=== PATIENT | male | born 1995 | race Caucasian/White ===

== ENCOUNTER 2017-12-18 16:45 | Inpatient (IN) | payer MEDICAID ==
[2017-12-18] MEDS ORDERED: DiphenhydrAMINE HCL 50 MG/ML VIAL ONE ×2 (17:26→17:28)
[2017-12-18] MEDS ORDERED: HALOPERIDOL LACTATE 5 MG/ML VIAL ONE (17:26)
[2017-12-18] MEDS ORDERED: LORazepam 2 MG/ML VIAL ONE ×2 (17:26→17:28)
[2017-12-18] MEDS ORDERED: HALOPERIDOL LACTATE 5 MG/ML VIAL IM ONE (17:30)
[2017-12-18] MEDS ORDERED: LORazepam 2 MG/ML VIAL IM ONE (17:30)
[2017-12-18] MEDS ORDERED: DiphenhydrAMINE HCL 50 MG/ML VIAL IM ONE (17:30)
[2017-12-18] MEDS ORDERED: INFLUENZA VIRUS VACCINE QVS 2017-18 (3YR+)/PF 60 MCG/0.5 ML SYRINGE IM ONE (18:15)
[2017-12-19 08:09] LABS: BASOPHILS % (AUTO) 0.5 % (0.0-2.0); EOSINOPHILS % (AUTO) 0.6 % (1.0-6.0); HEMATOCRIT 51.5 % (41-53); HEMOGLOBIN 18.2 g/dL (13.5-17.5); LYMPHOCYTES # (AUTO) 1.9 K/uL (1.0-4.8); LYMPHOCYTES % (AUTO) 21.5 % (22.0-44.0); MEAN CORPUSCULAR HEMOGLOBIN 34.3 pg (26.0-34.0); MEAN CORPUSCULAR HGB CONC 35.3 G/dL (31.0-37.0); MEAN CORPUSCULAR VOLUME 97 fL (80-100); MONOCYTES # (AUTO) 0.7 K/uL (0.1-1.0); MONOCYTES % (AUTO) 7.7 % (2.0-9.0); NEUTROPHILS # (AUTO) 6.2 K/uL (1.8-7.7); NEUTROPHILS % (AUTO) 69.7 % (40.0-70.0); PLATELET COUNT (AUTO) 346 K/uL (150-450)
[2017-12-19 08:39] LABS: ALANINE AMINOTRANSFERASE 20 U/L (12-78); ALBUMIN 4.6 g/dL (3.4-5.0); ALKALINE PHOSPHATASE 82 U/L (46-116); ANION GAP 7 mmol/L (8-16); ASPARTATE AMINOTRANSFERASE 39 U/L (15-37); BILIRUBIN,TOTAL 1.1 mg/dL (0.1-1.0); CALCIUM, TOTAL 9.9 mg/dL (8.8-10.5); CARBON DIOXIDE 33 mmol/L (22-29); CHLORIDE 101 mmol/L (98-107); CHOL/HDL RATIO 2.6 (4.2-7.3); CHOLESTEROL 161 mg/dL (131-200); CREATININE 1.11 mg/dL (0.60-1.30); FREE T4 (FREE THYROXINE) 0.96 ng/dL (0.76-1.46); GLOMERULAR FILTR. RATE CALC > 60 mL/min (>60); GLUCOSE,RANDOM 98 mg/dL (70-110); HDL CHOLESTEROL 62 mg/dL (40-60); LDL CHOL (CALC.) 91 mg/dL (0-130); POTASSIUM 4.4 mmol/L (3.5-5.1); SODIUM SERUM 141 mmol/L (136-145); THYROID STIMULATING HORMONE 1.88 uIU/mL (0.36-3.74); TOTAL PROTEIN, SERUM 8.1 g/dL (6.4-8.2); TRIGLYCERIDES 39 mg/dL (15-150); UREA NITROGEN, BLOOD 15 mg/dL (7-18)
[2017-12-19] MEDS ORDERED: BENZOCAINE/MENTHOL LOZENGE MM PRN (11:00)
[2017-12-19] MEDS ORDERED: CloNIDine HCL 0.1 MG TABLET PO PRN (11:00)
[2017-12-19] MEDS ORDERED: LOPERAMIDE HCL 2 MG CAPSULE PO PRN (11:00)
[2017-12-19] MEDS ORDERED: ALBUTEROL SULFATE HFA 90 MCG/PUFF 8 GM INHALER IH PRN (11:00)
[2017-12-19] MEDS ORDERED: ONDANSETRON HCL 4 MG TABLET PO PRN (11:00)
[2017-12-19] MEDS ORDERED: ACETAMINOPHEN 325 MG TABLET PO PRN (11:00)
[2017-12-19] MEDS ORDERED: MAGNESIUM HYDROXIDE SUSPENSION 30 ML UDCUP PO PRN (11:00)
[2017-12-19] MEDS ORDERED: IBUPROFEN 600 MG TABLET PO PRN (11:00)
[2017-12-19] MEDS ORDERED: PETROLATUM,WHITE 71 GM JELLY TP PRN (11:00)
[2017-12-19] MEDS ORDERED: MAG HYDROX/AL HYDROX/SIMETH ES 30 ML SUSPENSION UDCUP PO PRN (11:00)
[2017-12-19] MEDS ORDERED: BACITRACIN 28.4 GM OINTMENT TP PRN (11:00)
[2017-12-19 16:00] VITALS: BP 121/77
[2017-12-19] MEDS: HALOPERIDOL 5 MG TABLET PO PRN (16:50)
[2017-12-19] MEDS: LORazepam 2 MG TABLET PO PRN (16:50)
[2017-12-19] MEDS: ZOLPIDEM TARTRATE 10 MG TABLET PO PRN (21:18)
[2017-12-19] MEDS: RisperiDONE 1 MG TABLET PO SCH (21:18)
[2017-12-20 06:53] VITALS: BP 118/66
[2017-12-20 08:33] LABS: APPEARANCE,URINE TURBID (CLEAR); BILIRUBIN,URINE NEGATIVE (NEGATIVE); GLUCOSE, URINE (UA) NEGATIVE (NEGATIVE); KETONES,URINE NEGATIVE (NEGATIVE); LEUKOCYTE ESTERASE ,URINE NEGATIVE (NEGATIVE); NITRATE,URINE NEGATIVE (NEGATIVE); OCCULT BLOOD,URINE NEGATIVE (NEGATIVE); PH,URINE 5.5 (5.0-8.0); PROTEIN,URINE NEGATIVE (NEGATIVE); UROBILINOGEN,URINE 0.2 mg/dL (<=1.0)
[2017-12-20 08:44] LABS: RBC,URINE None Seen /HPF (0-2)
[2017-12-20 08:45] LABS: BACTERIA,URINE Few /HPF (None Seen); SQUAMOUS EPITHELIAL CELL,UR Rare /LPF (None Seen); WBC,URINE None Seen /HPF (0-5)
[2017-12-20 08:46] LABS: AMORPHOUS SEDIMENT,UR Many /LPF (None Seen); CALCIUM OXALATE CRYSTALS,UR Few /LPF (None Seen)
[2017-12-20 09:11] VITALS: BP 112/89
[2017-12-20 10:28] LABS: AMPHET/METH SCREEN,URINE POSITIVE (NEGATIVE); BARBITURATE SCREEN, URINE NEGATIVE (NEGATIVE); BENZODIAZEPINES SCREEN,URINE NEGATIVE (NEGATIVE); CANNABINOID SCREEN,URINE POSITIVE (NEGATIVE); COCAINE SCREEN,URINE NEGATIVE (NEGATIVE); METHADONE SCREEN, URINE NEGATIVE (NEGATIVE); OPIATE SCREEN,URINE NEGATIVE (NEGATIVE)
[2017-12-20 10:45] LABS: PHENCYCLIDINE SCREEN,URINE NEGATIVE (NEGATIVE)
[2017-12-20] MEDS: LORazepam 2 MG TABLET PO PRN (16:23)
[2017-12-20] MEDS: HALOPERIDOL 5 MG TABLET PO PRN (16:23)
[2017-12-20 16:36] VITALS: BP 112/65
[2017-12-20] MEDS: RisperiDONE 1 MG TABLET PO SCH (21:07)
[2017-12-21 00:17] VITALS: BP 114/70
[2017-12-21] MEDS: ZOLPIDEM TARTRATE 10 MG TABLET PO PRN (00:22)
[2017-12-21 08:16] VITALS: BP 122/68
[2017-12-21] MEDS ORDERED: RISP1 PO (12:10)
== END 2017-12-21 13:15 | disposition home or self-care (01) | DRG 750 ==
LOC: B3A 17:32
DX: F20.0 Paranoid schizophrenia (principal); R45.850 Homicidal ideations; R45.851 Suicidal ideations; G47.00 Insomnia, unspecified; Z59.0 Homelessness; Z79.899 Other long term (current) drug therapy; Z91.19 Patient's noncompliance with other medical treatment and regimen
CPT/HCPCS: 80307; 83036; 84439; 84443; J1200; J1630; J2060

== ENCOUNTER 2021-09-10 20:36 | Inpatient (IN) | payer MEDICAID ==
[~2021-09-10 20:36] MED LIST: RISP1TAB48 PO
[2021-09-11 00:01] LABS: GLUCOMETER DEV NAME(LOC) POC.BV
[2021-09-11] MEDS ORDERED: HALOPERIDOL 5 MG TABLET PO PRN (00:15)
[2021-09-11 01:21] VITALS: BP 130/69
[2021-09-11] MEDS ORDERED: INFLUENZA VIRUS VACCINE QVS 2021-22 (6MO+)/PF 60 MCG/0.5 ML SYRINGE IM. ONE (01:45)
[2021-09-11 08:15] VITALS: BP 137/82
[2021-09-11] MEDS ORDERED: ONDANSETRON HCL 4 MG TABLET PO PRN (10:30)
[2021-09-11] MEDS ORDERED: DOCUSATE SODIUM 100 MG CAPSULE PO PRN (10:30)
[2021-09-11] MEDS ORDERED: IBUPROFEN 400 MG TABLET PO PRN (10:30)
[2021-09-11] MEDS ORDERED: MAG HYDROX/AL HYDROX/SIMETH ES 30 ML SUSPENSION UDCUP PO PRN (10:30)
[2021-09-11] MEDS ORDERED: MAGNESIUM HYDROXIDE SUSPENSION 30 ML UDCUP PO PRN (10:30)
[2021-09-11] MEDS ORDERED: ACETAMINOPHEN 325 MG TABLET PO PRN (10:30)
[2021-09-11] MEDS ORDERED: ALBUTEROL SULFATE HFA 90 MCG/PUFF 8 GM INHALER IH PRN (10:30)
[2021-09-11] MEDS ORDERED: CloNIDine HCL 0.1 MG TABLET PO PRN (10:30)
[2021-09-11] MEDS ORDERED: PETROLATUM,WHITE 28 GM JELLY TP PRN (10:30)
[2021-09-11] MEDS ORDERED: LOPERAMIDE HCL 2 MG CAPSULE PO PRN (10:30)
[2021-09-11] MEDS ORDERED: GuaiFENesin/D-METHORPHAN [SUGAR-FREE] 200-20MG/10 ML SYRUP UDCUP PO PRN (10:30)
[2021-09-11] MEDS ORDERED: NICOTINE 14 MG/24 HOUR PATCH TD PRN (10:30)
[2021-09-11] MEDS: NICOTINE 21 MG/24 HOUR PATCH TD PRN (12:49)
[2021-09-11 16:19] VITALS: BP 127/67
[2021-09-11] MEDS: LORazepam 2 MG TABLET PO PRN (16:19)
[2021-09-11] MEDS: RisperiDONE 1 MG TABLET PO SCH (16:19)
[2021-09-11] MEDS: ZOLPIDEM TARTRATE 10 MG TABLET PO PRN (20:40)
[2021-09-12 04:00] VITALS: BP 129/83
[2021-09-12 08:18] LABS: BASOPHILS % (AUTO) 0.8 % (0.0-2.0); EOSINOPHILS % (AUTO) 0.9 % (1.0-6.0); HEMATOCRIT 47.7 % (41-53); HEMOGLOBIN 16.4 g/dL (13.5-17.5); LYMPHOCYTES # (AUTO) 2.2 K/uL (1.0-4.8); LYMPHOCYTES % (AUTO) 37.1 % (22.0-44.0); MEAN CORPUSCULAR HEMOGLOBIN 33.9 pg (26.0-34.0); MEAN CORPUSCULAR HGB CONC 34.3 G/dL (31.0-37.0); MEAN CORPUSCULAR VOLUME 99 fL (80-100); MONOCYTES # (AUTO) 0.5 K/uL (0.1-1.0); MONOCYTES % (AUTO) 8.8 % (2.0-9.0); NEUTROPHILS # (AUTO) 3.1 K/uL (1.8-7.7); NEUTROPHILS % (AUTO) 52.4 % (40.0-70.0); PLATELET COUNT (AUTO) 247 K/uL (150-450); RED BLOOD CELL COUNT(AUTO) 4.83 MIL/uL (4.50-5.90); RED CELL DISTRIBUTION WIDTH 13.5 % (11.5-14.5)
[2021-09-12 08:25] LABS: ALANINE AMINOTRANSFERASE 22 U/L (12-78); ALBUMIN 4.1 g/dL (3.4-5.0); ALKALINE PHOSPHATASE 61 U/L (46-116); ANION GAP 1 mmol/L (8-16); ASPARTATE AMINOTRANSFERASE 11 U/L (15-37); BILIRUBIN,TOTAL 0.5 mg/dL (0.1-1.0); CALCIUM, TOTAL 9.2 mg/dL (8.8-10.5); CARBON DIOXIDE 32 mmol/L (22-29); CHLORIDE 106 mmol/L (98-107); CHOL/HDL RATIO 3.1 (4.2-7.3); CHOLESTEROL 159 mg/dL (131-200); CREATININE 0.92 mg/dL (0.60-1.30); FREE T4 (FREE THYROXINE) 0.93 ng/dL (0.76-1.46); GLOMERULAR FILTR. RATE CALC > 60 mL/min (>60); GLUCOSE,RANDOM 96 mg/dL (70-110); HDL CHOLESTEROL 52 mg/dL (40-60); LDL CHOL (CALC.) 98 mg/dL (0-130); POTASSIUM 4.5 mmol/L (3.5-5.1); SODIUM SERUM 139 mmol/L (136-145); THYROID STIMULATING HORMONE 1.06 uIU/mL (0.36-3.74); TOTAL PROTEIN, SERUM 7.3 g/dL (6.4-8.2); TRIGLYCERIDES 44 mg/dL (15-150); UREA NITROGEN, BLOOD 6 mg/dL (7-18)
[2021-09-12 08:53] VITALS: BP 126/82
[2021-09-12] MEDS: RisperiDONE 1 MG TABLET PO SCH (09:00)
[2021-09-12 16:20] VITALS: BP 141/64
[2021-09-12] MEDS: LORazepam 2 MG TABLET PO PRN (16:27)
[2021-09-12] MEDS ORDERED: HALOPERIDOL 5 MG TABLET PO SCH (21:00)
[2021-09-13 05:06] VITALS: BP 113/85
[2021-09-13 08:05] VITALS: BP 126/72
[2021-09-13] MEDS ORDERED: HALOPERIDOL DECANOATE 100 MG/ML VIAL IM ONE (11:00)
[2021-09-13 16:15] VITALS: BP 137/79
[2021-09-13] MEDS: NICOTINE 21 MG/24 HOUR PATCH TD PRN (18:25)
[2021-09-13] MEDS: ZOLPIDEM TARTRATE 10 MG TABLET PO PRN (20:27)
[2021-09-13] MEDS: HALOPERIDOL 5 MG TABLET PO SCH (20:27)
[2021-09-13] MEDS: LORazepam 2 MG TABLET PO PRN (21:46)
[2021-09-14 04:49] VITALS: BP 138/90
[2021-09-14 08:07] VITALS: BP 130/84
[2021-09-14 16:14] VITALS: BP 120/75
[2021-09-14] MEDS ORDERED: HALOPERIDOL DECANOATE 100 MG/ML VIAL IM SCH (17:00)
[2021-09-14] MEDS: HALOPERIDOL 5 MG TABLET PO SCH (20:33)
[2021-09-14] MEDS: ZOLPIDEM TARTRATE 10 MG TABLET PO PRN (20:41)
[2021-09-14] MEDS: LORazepam 2 MG TABLET PO PRN (20:41)
[2021-09-15 04:25] VITALS: BP 120/70
[2021-09-15 09:04] VITALS: BP 124/70
[2021-09-15] MEDS: NICOTINE 21 MG/24 HOUR PATCH TD PRN (12:13)
[2021-09-15 16:13] VITALS: BP 121/79
[2021-09-15] MEDS: HALOPERIDOL 5 MG TABLET PO SCH (20:16)
[2021-09-15] MEDS: LORazepam 2 MG TABLET PO PRN (20:17)
[2021-09-15] MEDS: ZOLPIDEM TARTRATE 10 MG TABLET PO PRN (22:20)
[2021-09-16 01:22] VITALS: BP 101/63
[2021-09-16 08:21] VITALS: BP 126/82
[2021-09-16] MEDS: HALOPERIDOL 5 MG TABLET PO SCH (08:30)
[2021-10-13] MEDS ORDERED: HALOPERIDOL DECANOATE 100 MG/ML VIAL IM SCH (09:00)
== END 2021-09-16 15:00 | disposition left against medical advice (07) | DRG 750 ==
LOC: B3A 23:59 → UNDOADMIN 09-11 00:11 → B3A 09-11 00:17
PROVIDERS: ADMIT Psychiatry & Neurology Psychiatry; ATTEND Psychiatry & Neurology Psychiatry
DX: F20.0 Paranoid schizophrenia (principal); F41.9 Anxiety disorder, unspecified; G44.209 Tension-type headache, unspecified, not intractable; G47.00 Insomnia, unspecified; Z20.822 Contact with and (suspected) exposure to COVID-19
CPT/HCPCS: 80053; 80061; 84436; 84439; 84443; 85025; G0480; J1631

== ENCOUNTER 2021-09-27 02:16 | Emergency (ER) | payer MEDICAID, OTHER ==
[~2021-09-27] VITALS: Ht 180.3 cm; Wt 68.5 kg
[2021-09-27] MEDS ORDERED: LORA-1001 PO (02:35)
[2021-09-27] MEDS ORDERED: ZOLP10TA8 PO (02:35)
[2021-09-27] MEDS ORDERED: HALO5TAB2 PO (02:35)
[2021-09-27 02:54] LABS: BASOPHILS % (AUTO) 0.5 % (0.0-2.0); EOSINOPHILS % (AUTO) 0.9 % (1.0-6.0); HEMATOCRIT 44.3 % (41-53); HEMOGLOBIN 15.4 g/dL (13.5-17.5); LYMPHOCYTES # (AUTO) 3.5 K/uL (1.0-4.8); LYMPHOCYTES % (AUTO) 29.4 % (22.0-44.0); MEAN CORPUSCULAR HEMOGLOBIN 33.7 pg (26.0-34.0); MEAN CORPUSCULAR HGB CONC 34.7 G/dL (31.0-37.0); MEAN CORPUSCULAR VOLUME 97 fL (80-100); MONOCYTES % (AUTO) 8.2 % (2.0-9.0); NEUTROPHILS # (AUTO) 7.2 K/uL (1.8-7.7); PLATELET COUNT (AUTO) 281 K/uL (150-450); RED BLOOD CELL COUNT(AUTO) 4.56 MIL/uL (4.50-5.90); RED CELL DISTRIBUTION WIDTH 13.2 % (11.5-14.5)
[2021-09-27 03:08] LABS: ANION GAP 6 mmol/L (8-16); CALCIUM, TOTAL 9.3 mg/dL (8.8-10.5); CARBON DIOXIDE 31 mmol/L (22-29); CHLORIDE 106 mmol/L (98-107); CREATININE 1.06 mg/dL (0.60-1.30); GLOMERULAR FILTR. RATE CALC > 60 mL/min (>60); GLUCOSE,RANDOM 182 mg/dL (70-110); POTASSIUM 3.7 mmol/L (3.5-5.1); SODIUM SERUM 143 mmol/L (136-145); UREA NITROGEN, BLOOD 13 mg/dL (7-18)
[2021-09-27 03:15] LABS: ALANINE AMINOTRANSFERASE 39 U/L (12-78); ALBUMIN 3.9 g/dL (3.4-5.0); ALKALINE PHOSPHATASE 63 U/L (46-116); ASPARTATE AMINOTRANSFERASE 43 U/L (15-37); BILIRUBIN,TOTAL 0.3 mg/dL (0.1-1.0); TOTAL PROTEIN, SERUM 6.8 g/dL (6.4-8.2)
[2021-09-27] MEDS ORDERED: NALOXONE HCL 1 MG/ML 2 ML SYG ONE (03:48)
[2021-09-27] MEDS ORDERED: NALOXONE HCL 1 MG/ML 2 ML SYG IVP ONE (04:00)
[2021-09-27 05:50] VITALS: BP 146/75
== END 2021-09-27 06:23 | disposition home or self-care (01) ==
LOC: EMS 02:24
DX: T40.601A Poisoning by unspecified narcotics, accidental (unintentional), initial encounter (principal); Y92.89 Other specified places as the place of occurrence of the external cause
CPT/HCPCS: 36415; 71045; 80053; 85025; 96374; 99285; G0480; J2310

== ENCOUNTER 2021-09-27 08:24 | Emergency (ER) | payer OTHER ==
[~2021-09-27] VITALS: Ht 175.3 cm; Wt 86.4 kg
[~2021-09-27 08:24] MED LIST changes: +HALO5TAB2 PO; +LORA-1001 PO; -RISP1TAB48 PO; +ZOLP10TA8 PO
[2021-09-27 12:36] VITALS: BP 137/71
== END 2021-09-27 12:37 | disposition home or self-care (01) ==
LOC: EMS 10:01
DX: T40.601A Poisoning by unspecified narcotics, accidental (unintentional), initial encounter (principal); Y92.89 Other specified places as the place of occurrence of the external cause
CPT/HCPCS: 99283; 99284

== ENCOUNTER 2021-09-27 20:11 | Emergency (ER) | payer OTHER ==
[~2021-09-27] VITALS: Ht 170.2 cm; Wt 75.0 kg
[2021-09-27] MEDS ORDERED: ONDANSETRON HCL 4 MG/2 ML VIAL IM ONE (20:30)
[2021-09-27 20:40] VITALS: BP 129/72
== END 2021-09-27 21:02 | disposition home or self-care (01) ==
LOC: EMS 20:16
DX: R11.2 Nausea with vomiting, unspecified (principal); F11.20 Opioid dependence, uncomplicated
CPT/HCPCS: 96372; 99283; J2405